=== PATIENT | male | born 1945 | race Caucasian/White ===

== ENCOUNTER → 2017-08-26 | Outpatient (CLI) | payer MEDICARE, OTHER ==
--- NOTE | 2017-08-26 15:31 | Diagnostic Imaging Report ---
INDICATION: Fatigue. History of asbestos exposure. Shortness of breath. Possible lung mass. COMPARISON: None. FINDINGS: Frontal and lateral radiographic views of the chest were obtained and demonstrate a 2.3 cm nodular opacity in the lateral margins of the left upper lobe. Small bibasilar effusions are also noted. There is also some patchy and confluent airspace disease within the left lower lung field. Pulmonary interstitium is also prominent. No pneumothorax is seen on either side. Cardiac silhouette is within normal limits. Pulmonary vasculature is mildly prominent. Bony structures show no gross acute abnormalities. IMPRESSION: 1. Nodular opacity in the left upper lobe concerning for soft tissue nodule. Correlation with postcontrast CT is recommended. 2. Pulmonary vascular congestion and probable interstitial pulmonary edema. 3. Bibasilar effusions. 4. Left basilar airspace disease suspicious for atelectasis and/or infiltrate. Results were called to Dolly Garcia by Dr. Schaefer at 1522 hours on 08/26/2017. Dictated by: Dictated on workstation # [id number]
== END ==
LOC: RAD 14:51
PROVIDERS: ATTEND Nurse Practitioner Family
DX: R91.8 Other nonspecific abnormal finding of lung field (principal); R09.89 Other specified symptoms and signs involving the circulatory and respiratory systems; J91.8 Pleural effusion in other conditions classified elsewhere; J98.4 Other disorders of lung
CPT/HCPCS: 71046

== ENCOUNTER → 2017-09-01 | Outpatient (CLI) | payer MEDICARE, OTHER ==
[~2017-09-01] MED LIST: RT-ALBUTEROL SULF 2.5 MG/3 ML PRE-MIX VIAL INH ONE
== END ==
LOC: RT 13:29 → EDUNIT# 14:15
PROVIDERS: ATTEND Nurse Practitioner Family
DX: J61 Pneumoconiosis due to asbestos and other mineral fibers (principal); R06.00 Dyspnea, unspecified
CPT/HCPCS: 94060; 94726; 94729

== ENCOUNTER → 2017-09-02 | Outpatient (CLI) | payer MEDICARE, OTHER ==
--- NOTE | 2017-09-04 08:04 | Diagnostic Imaging Report ---
EXAM: PET/CT. INDICATION: Lung mass. TECHNIQUE: PET/CT imaging was obtained from the base of the skull through the pelvis after the administration of 13.93 mCi of F-[address] imaging was utilized for localization and attenuation correction purposes. The low energy CT utilized for attenuation correction is not considered to be of high enough spatial resolution to allow in and of itself a separate anatomical analysis. There are no previous PET/CT examinations available for comparison. The CT chest exam performed at [facility] on 08/20/2017 was reviewed. That study noted abnormal masses involving the left lung base as well as bibasilar pneumonia/atelectasis and small bilateral pleural effusions as well as a small pericardial effusion. There also appeared to be mediastinal adenopathy and a pleural-based mass along the periphery of the left upper lung. In addition, there was the suggestion of a node in the left supraclavicular region. On this study there are multiple contiguous hypermetabolic masses in the left lung base. These have a maximum SUV of 8.6 and should be considered neoplastic until proven otherwise. The mediastinal adenopathy noted on the prior exam is also hypermetabolic with a maximum SUV of 5.4. Curiously, the mass along the periphery of the left upper lung is not hypermetabolic. The mass in the left supraclavicular region however is intensely hypermetabolic with a maximum SUV of 9.6. The images through the abdomen and pelvis show small areas of increased metabolic activity near the left limb of the aortic stent graft. This has a maximum SUV of 4.3. This could represent a small node involved by neoplasm although that would be somewhat unusual. This could also be secondary to an ectatic vessel. If previous CT abdomen/pelvis examinations are available, they would be helpful for comparison. The images through the low pelvis do show a focal area of hypermetabolic activity within the posterior aspect of the rectosigmoid portion of the colon. This could be physiologic in nature but the isolated uptake in this area does raise the question of a mass. Endoscopy would be recommended for further evaluation. No other hypermetabolic activity is seen to suggest the presence of neoplasm. 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 The bibasilar atelectasis/infiltrate and bilateral pleural effusions and small pericardial effusion seen on the previous CT exam are again evident There is physiologic activity within the brain, the heart, the kidneys, the bowel and the bladder. IMPRESSION: 1. There are multiple hypermetabolic masses in the left lung base. These should be considered neoplastic until proven otherwise. There is also neoplastic mediastinal adenopathy as well as a hypermetabolic node in the left supraclavicular region. 2. The small area of increased activity near the left limb of the aortoiliac graft is suspicious for a node involved by neoplasm. There is also a question of a focal neoplastic mass involving the rectosigmoid portion of the colon. Recommendations as above. 3. There is persistent bibasilar pneumonia/atelectasis and small bilateral pleural effusions as well as a small left pericardial effusion. 4. 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 Dictated by: Dictated on workstation # [id number]
== END ==
LOC: RAD 12:29 → EDUNIT# 13:45
PROVIDERS: ATTEND Nurse Practitioner Family
DX: R59.0 Localized enlarged lymph nodes (principal)

== ENCOUNTER → 2017-09-11 | Outpatient (CLI) | payer MEDICARE, OTHER ==
[~2017-09-11] VITALS: Ht 167.6 cm; Wt 99.8 kg
[~2017-09-11] MED LIST changes: +LIDOCAINE 1% INJ 20 ML (XYLOCAINE) VIAL INJ ONE; +LIDOCAINE 1% INJ 50 ML (XYLOCAINE) VIAL ONE; -RT-ALBUTEROL SULF 2.5 MG/3 ML PRE-MIX VIAL INH ONE
[2017-09-11 11:32] VITALS: BP 130/79
[2017-09-11 12:05] VITALS: BP 129/80
--- NOTE | 2017-09-11 12:23 | Diagnostic Imaging Report ---
INDICATION: Left supraclavicular lymphadenopathy. Patient presents for ultrasound-guided biopsy. PROCEDURE: The patient was brought to the procedure room and placed on the bed in the supine position. Ultrasound imaging over the left lower neck was performed to evaluate appropriate entry site. The left neck was then prepped and draped in usual sterile fashion. Small amount of 1% lidocaine was utilized for local anesthesia. A total of three passes were made into the enlarged left supraclavicular node with a 14-gauge Temno needle. Hemostasis was obtained using manual compression. Patient tolerated the procedure well. IMPRESSION: Successful ultrasound guided left supraclavicular lymph node biopsy. Pathology results are currently pending. Dictated by: Dictated on workstation # [id number]
== END ==
LOC: RAD 11:13
PROVIDERS: ATTEND Internal Medicine Critical Care Medicine
DX: R59.0 Localized enlarged lymph nodes (principal)
CPT/HCPCS: 76942

== ENCOUNTER → 2017-11-06 | Outpatient (CLI) | payer MEDICARE, OTHER ==
--- NOTE | 2017-11-06 11:10 | Diagnostic Imaging Report ---
EXAMINATION: PA and lateral chest at 1003 AM INDICATION: Respiratory distress The heart size is within normal limits and stable when compared to 08/26/17. As noted on the prior exam, there is atelectasis/infiltrate and fluid involving both lung bases, particularly the left lower lobe. The central pulmonary vascularity is also prominent but essentially no different than on the prior study. The 2.3 CM nodule overlying the periphery of the left upper lung seen on the previous exam is again visualized and virtually unchanged in size or appearance. The mediastinum is not widened. The osseous structures are intact. In the interval since the prior exam, a left-sided Port-A-Cath has been inserted. The tip of the catheter overlies the mid portion of the superior vena cava. There is no sign of a pneumothorax. IMPRESSION: 1. Aside from the insertion of the left-sided Port-A-Cath, there has been no significant change since the prior exam. There is persistent involvement of the lung bases by atelectasis/infiltrate and fluid and there does appear to be an element of pulmonary congestion present. 2. A followup exam would be recommended for continued evaluation. Dictated by: Dictated on workstation # [id number]
== END ==
LOC: RAD 09:34
PROVIDERS: ATTEND Nurse Practitioner Family
DX: C34.90 Malignant neoplasm of unspecified part of unspecified bronchus or lung (principal); J44.9 Chronic obstructive pulmonary disease, unspecified; R59.9 Enlarged lymph nodes, unspecified; R06.01 Orthopnea; R60.9 Edema, unspecified; Z95.9 Presence of cardiac and vascular implant and graft, unspecified
CPT/HCPCS: 71046